=== PATIENT | female | born 1985 | race Caucasian/White ===

== ENCOUNTER 2019-04-28 05:23 | Day surgery (SDC) | payer MEDICAID ==
[2019-04-25 10:49] LABS: BASOPHILS 0.3 % (0-2); EOSINOPHILS 1.9 % (0-7); HEMATOCRIT 40.5 % (36.0-48.0); HEMOGLOBIN 13.6 g/dL (12-16); IMMATURE GRANULOCYTES 0.1 % (0-5); LYMPHOCYTES 34.1 % (15-50); MCH 29.6 pg (26.0-34.0); MCHC 33.6 g/dL (31.0-37.0); MEAN PLATELET VOLUME 10.3 fL (7.4-10.4); NEUTROPHILS 54.6 % (40-80); PLATELET COUNT 255 10x3/uL (130-400)
[2019-04-25 10:59] LABS: ANION GAP 13.5 mmol/L (8-16); CALCIUM 8.8 mg/dL (8.5-10.1); CARBON DIOXIDE 24.7 mmol/L (21.0-32.0); POTASSIUM - SERUM 4.2 mmol/L (3.5-5.1)
[~2019-04-28] VITALS: Ht 160 cm; Wt 100.0 kg
[~2019-04-28 05:23] MED LIST: CELEXA10 MG PO
[2019-04-28 06:13] VITALS: BP 123/77; BMI 39.0
[2019-04-28 06:20] LABS: HCG URINE NEGATIVE (NEGATIVE)
--- NOTE | 2019-04-28 09:52 | NUR ---
CALLED PHARMAANNE BRITTON AND TOLD HIM OF THE TORADO 15MG BOTTLE NOT WANTING TO SCAN INTO THE MAR WHEN THERE IS A 30MG ORDER BY THE DOCTOR. I GAVE 30MG OF TORDOL BY USING 2 15MG BOTTLES IV ORDERED.
[2019-04-28 10:26] VITALS: BP 111/63
[2019-04-28 11:55] VITALS: Ht 160 cm; Wt 100.0 kg
[2019-04-28 12:16] VITALS: BP 128/83
--- NOTE | 2019-04-28 12:22 | NUR ---
GAVE PERCOCET FOR PAIN LEVEL OF 6/10. PT EATING LUNCH AT THIS TIME. ALSO REMOVED TAVAREZ CATHETER WITH TIP INTACT. HELPED PT TO BATHROOM AND PT WAS ABLE TO URINATE. PT DENIES ANY OTHER NEEDS AT THIS TIME. CALL LIGHT IN REACH,NAD NOTED, WILL CONTINUE TO MONITOR.
[2019-04-28 12:29] VITALS: BP 115/80
[2019-04-28 16:20] VITALS: BP 118/70
[2019-04-28] MEDS ORDERED: NEURONTIN 300300 MG PO (16:39)
[2019-04-28] MEDS ORDERED: MOBIC7.5 MG PO (16:40)
[2019-04-28] MEDS ORDERED: PERCOCET 7.5/321 TAB PO (16:40)
--- NOTE | 2019-04-28 17:05 | NUR ---
PROVIDED VERBAL AND WRITTEN DISCHAGE TEACHING TO PT, WHO VERBALIZED UNDERSTANDING REGARDING TEACHING. D/C RT WRIST IV WITH CATHETER TIP INTACT. PT LEFT UNIT VIA WHEELCHAIR, WITH ALL BELONGIGNS, ACCOMPANIED BY , NAD NOTED.
--- NOTE | 2019-05-01 07:58 | OP ---
PATIENT NAME: ARIADNA PEREIRA MEDICAL RECORD: [id number] LOCATION:[facility] ADMISSION DATE: SURGEON: ZACKERY OWENS MD DATE OF OPERATION: 04/28/2019 PREOPERATIVE DIAGNOSES: 1. Dysmenorrhea. 2. Dyspareunia. 3. Cyclic menorrhagia. 4. First-degree uterine prolapse. POSTOPERATIVE DIAGNOSES: 1. Dysmenorrhea. 2. Dyspareunia. 3. Cyclic menorrhagia. 4. First-degree uterine prolapse. PROCEDURE: 1. Diagnostic laparoscopy. 2. Total laparoscopic hysterectomy. 3. Bilateral salpingectomy. SURGEON: Zackery Owens MD/Brigitte Almanzar DO MOTION PICTURE PROJECTIONIST APPRENTICE: Fletcher Argueta ANESTHESIOLOGIST: Dr. Jain. ANESTHETIC: General. FINDINGS: Uterus is slightly enlarged and boggy. The tubes are unremarkable. What was visualized of the abdominal anatomy is also unremarkable. SPECIMENS REMOVED: Uterus with bilateral tubes. SPECIMEN DISPOSITION: All specimens to pathology. ESTIMATED BLOOD LOSS: Less than or equal to 100 cc. FLUIDS: 1400 cc lactated Ringer's. URINE OUTPUT: 100 cc of clear urine. COMPLICATIONS: None. DRAINS: Kumar to gravity. INDICATIONS: The patient is a 33-year-old female with painful periods and painful intercourse. The patient also reports cyclic menorrhagia. The patient is consented for total laparoscopic hysterectomy and bilateral salpingectomies. DESCRIPTION OF PROCEDURE: After informed consent was assured, the patient was taken to the operating room where anesthetic was obtained. The patient was now prepped and draped. Uterine manipulator was placed. An infraumbilical incision was made for primary trocar. This trocar was inserted without difficulty and OPERATIVE REPORT [id number] ARIADNA PEREIRA pneumoperitoneum developed. With the patient in steep Trendelenburg position, right and left lower quadrant ports were placed. With the bowel swept free of the pelvis, right tube was elevated and using the coagulation cutter from the right side, the right tube was freed from its attachments. The dissection was carried out of the uterine ovarian ligament, round ligaments and the anterior leaf of the broad ligament was opened to the midline at the bladder flap. Posterior leaf was opened. The vessels on the right side skeletonized, compressed, and coagulated. The bladder flap was further dissected with hydrodissection and carried across the midline. Attention now directed to the left side. With the left tube elevated and from the left, the tube attachment to the adnexa was compressed, coagulated, and . Again, this dissection was carried out over the uteroovarian and round ligaments. Anterior leaf of the broad ligament was opened and the bladder flap now fully developed. Posterior leaf was opened and the vessels of the left side, compressed, coagulated, and . Dissection begins from the left. Initial dissection was above the level of the manipulator cup. This dissection was carried down and then brought across to the right side. From the right side, the cup was easily entered and the dissection was completed. Uterus was pulled into the vaginal vault. Pneumoperitoneum was maintained. The cup was inspected. Small vessel was cauterized on the right of midline. With the uterus and tubes removed, the cup was now closed in anterior to posterior fashion with interrupted Vicryl stitches. After closure of the cup, pneumoperitoneum was reestablished and the pelvis was irrigated and irrigant removed. Portions of Interceed wrapped around the left ovary. The sponge, lap and needle count was correct times 2 at the close of this procedure. Pneumoperitoneum was released and the trocars were removed under visualization. The primary trocars removed and all sites closed with subcuticular stitch and Dermabond was applied. TRANSINT:[id number] Voice Confirmation ID: [id number] DOCUMENT ID: [id number] ZACKERY OWENS MD at 0758 CC: [id number] DICTATION DATE: 04/28/19914 EXECUTIVE CASINO HOST: 04/28/19 0938 [facility] 04/28/19 [id number] [place] [address]
== END 2019-04-28 17:16 | disposition home or self-care (01) ==
LOC: D.OPS 05:23 → D.PAN 07:30 → D.M3 10:02 → D.OPS 17:16
PROVIDERS: Anesthesiology; ATTEND Obstetrics & Gynecology
DX: N81.2 Incomplete uterovaginal prolapse (principal); N92.0 Excessive and frequent menstruation with regular cycle; N94.10 Unspecified dyspareunia

== ENCOUNTER 2019-11-21 09:00 | Outpatient (CLI) | payer MEDICAID ==
[2019-10-27 06:51] VITALS: BMI 41.5
[~2019-11-21 09:00] MED LIST changes: +BUSPIRONE HCL30 MG; +CELEXA40 MG PO; +MOBIC7.5 MG PO; +NEURONTIN 300300 MG PO; +OXYCODONE HCL5 M1 PO; +PERCOCET 7.5/321 TAB PO
== END 2019-11-21 10:00 | disposition home or self-care (01) ==
LOC: D.MAMMO 09:00
PROVIDERS: ATTEND Student in an Organized Health Care Education/Training Program
DX: N64.3 Galactorrhea not associated with childbirth (principal)